=== PATIENT | female | born 1965 | race Caucasian/White ===

== ENCOUNTER → 2019-07-02 | Outpatient (CLI) | payer MEDICAID ==
--- NOTE | 2019-07-02 09:58 | CT ---
EXAMINATION TYPE: CT wrist RT wo con DATE OF EXAM: 07/02/2019 COMPARISON: None HISTORY: 53-year-old female Right sided wrist pain post trauma. TECHNIQUE: Contiguous axial scanning of the right wrist without IV contrast. Coronal and sagittal rec onstructions performed. 3-D reconstructions generated on a dedicated independent workstation. CT DLP: 632 mGycm Automated exposure control for dose reduction was used. FINDINGS: Overlying plaster cast. There is a comminuted fracture of the distal radial metaphysis extending into the epiphysis and the dorsal aspect of the radial articular surface. This is predominantly transvers e fracture at the level of the metaphysis but with comminution dorsally showing multiple fracture nery es extending into the dorsal aspect of the radiocarpal joint. Scattered articular surface gaps up to 2 mm. No significant articular surface incongruity. Comminution incorporates listers tubercle. There is 3 mm of dorsal displacement and minimal impaction demonstrated of the dominant transverse co mponent and intra-articular extension into the distal radial ulnar joint as well.. There are a couple tiny fracture fragments from the ulnar styloid process. IMPRESSION: 1. COMMINUTED, MINIMALLY IMPACTED FRACTURE OF THE DISTAL RADIAL METAPHYSIS AND EPIPHYSIS WITH 3 MM OF DORSAL DISPLACEMENT. INTRA-ARTICULAR FRACTURE LINES ALONG THE DORSAL ASPECT OF THE RADIOCARPAL JOINT WITH ARTICULAR SURFACE GAPS MEASURING UP TO 2 MM. ADDITIONAL INTRA-ARTICULAR EXTENSION INTO THE DIST AL RADIOULNAR JOINT. 2. A COUPLE TINY FRACTURED BONE FLECKS FROM THE ULNAR STYLOID PROCESS.
== END | disposition home or self-care (01) ==
LOC: RADCTMAIN 08:16
PROVIDERS: ATTEND Orthopaedic Surgery
DX: S52.571A Other intraarticular fracture of lower end of right radius, initial encounter for closed fracture (principal); S52.611A Displaced fracture of right ulna styloid process, initial encounter for closed fracture

== ENCOUNTER 2019-07-03 10:51 | Day surgery (SDC) | payer MEDICAID ==
[2019-07-01 14:14] VITALS: BMI 26.6
[~2019-07-03 10:51] MED LIST: DEXAMETHASONE SOD PHOSPHATE 10 MG/ML 1 ML VIAL IV ONE; HYDROmorphone 0.5 MG/0.5 ML SYRINGE IVP PRN; LACTATED RINGERS 1,000 ML IV SCH; MIDAZOLAM 2 MG/2 ML VIAL IV PRN; ONDANSETRON 4 MG/2 ML VIAL IVP ONE; fentaNYL (PF) 50 MCG/ML 2 ML AMP IVP PRN
[2019-07-03] MEDS ORDERED: SCOPOLAMINE 1.5MG/72HR PATCH TRANSDERM ONE (12:02)
[2019-07-03] MEDS ORDERED: MIDAZOLAM 2 MG/2 ML VIAL IV ONE (12:43)
[2019-07-03] MEDS ORDERED: fentaNYL (PF) 50 MCG/ML 2 ML AMP IV ONE (12:43)
[2019-07-03 13:02] VITALS: RESP 16
--- NOTE | 2019-07-03 13:13 | P.ANPRN ---
Procedure Note - Anesthesia - Nerve Block Performed Right Supraclavicular Single Time Out Performed: Yes Date of Procedure: 07/03/19 Procedure Start Time: 12:42 Procedure Stop Time: 12:52 Location of Patient: PreOp Indication: Acute Post-Operative Pain, Requested by Surgeon Sedation Type: Sedate with meaningful contact maintained Preparation: Sterile Prep Position: Sitting Catheter: None Needle Types: Facet Needle Gauge: 21 Ultrasound used to visualize needle placement: Yes Ultrasound used to observe medication spread: Yes Injectate: 0.5% Ropivacaine (see comment for volume) (ropivacaine 0.5% 30 cc + decadron 4mg) Blood Aspirated: No Pain Paresthesia on Injection Noted: No Resistance on Injection: Normal Image Stored and Saved: Yes Events: Uneventful and Well Tolerated
[2019-07-03] MEDS ORDERED: fentaNYL (PF) 50 MCG/ML 2 ML AMP ONE (14:06)
[2019-07-03] MEDS ORDERED: MIDAZOLAM 2 MG/2 ML VIAL ONE (14:06)
[2019-07-03] MEDS ORDERED: SUCCINYLCHOLINE CHLORIDE 100 MG/5 ML SYR IV ONE (14:06)
[2019-07-03] MEDS ORDERED: ROPIVACAINE 5 MG/ML 30 ML VIAL ONE (14:06)
[2019-07-03] MEDS ORDERED: PROPOFOL 10 MG/ML 20 ML VIAL IV ONE (14:06)
[2019-07-03] MEDS ORDERED: HYDROmorphone (PF) 1 MG/ML ONE (14:06)
[2019-07-03] MEDS ORDERED: LIDOCAINE 2%-EPI 1:100,000 20 ML VIAL ONE (14:06)
[2019-07-03] MEDS ORDERED: LIDOCAINE 1% INJ 10MG/ML (20 ML MDV) ONE (14:06)
[2019-07-03] MEDS ORDERED: DEXAMETHASONE SOD PHOSPHATE 4 MG/ML 1 ML VIAL ONE (14:06)
[2019-07-03] MEDS ORDERED: LIDOCAINE 1%-EPI 1:100,000 20 ML VIAL INTRAARTIC ONE ×3 (15:02→16:55)
[2019-07-03] MEDS ORDERED: LACTATED RINGERS 1,000 ML IV ONE (16:24)
[2019-07-03] MEDS ORDERED: LIDOCAINE 1%-EPI 1:100,000 20 ML VIAL SQ ONE (16:55)
[2019-07-03 17:20] VITALS: TEMP 97
--- NOTE | 2019-07-03 17:31 | P.OP ---
Date of Procedure: 07/03/19 Preoperative Diagnosis: Displaced, intra-articular right distal radius fracture Postoperative Diagnosis: Displaced, intra-articular right distal radius fracture Procedure(s) Performed: Open reduction and internal fixation of displaced intra-articular right distal radius fracture (greater than 3 parts) Implants: Acumed AcuLoc2 narrow right volar distal radius plate with locking and cortical screws Anesthesia: CHIQUI, eirberto Surgeon: Lucien Grimes Media Supervisor #1: Natasha Shepherd Estimated Blood Loss (ml): 10 Condition: stable Disposition: PACU Indications for Procedure: The patient is a pleasant 53-year-old female who sustained a right distal radius fracture after a slip and fall on the ice. Treatment options (and associated risks and benefits) were discussed in the office. Surgical treatment was recommended. In preop, the patient denied any additional questions or concerns and wished to proceed with surgery. Consent forms were signed. The operative site was confirmed and marked. Description of Procedure: The patient was administered a regional nerve block by the anesthesia team and was then brought to the operating suite. She was positioned supine with the operative limb on an arm board. All bony prominences were well-padded. Anesthesia was administered uneventfully. Prophylactic IV antibiotics were administered. A tourniquet was placed on the operative arm which was then prepped and draped in standard, sterile fashion. A timeout was performed, confirming patient identifiers, the operative side, the site and the procedure to be performed: all team members expressed agreement. The limb was ex sanguinated with an Esmarch and the tourniquet was inflated. A standard volar FCR approach was utilized. The skin was incised sharply and subcutaneous tissue were spread, coagulating superficial vessels as needed. The radial artery was identified and protected throughout the case. The FCR sheath was incised and the tendon was mobilized. The floor of the sheath was released and blunt dissection was used to exposed the pronator quadratus. There was a transverse rent in the muscle belly at the level of the fracture. This was extended along its radial border and & subperiosteally elevated ulnarly. The fracture site was identified. There was an oblique fracture across the metaphysis, extending just proximal to the sigmoid notch. Preoperative CT scan demonstrated intra-articular fracture l moises into both the DRUJ and radiocarpal joints, with a separate displaced fragment of the dorsal metaphysis of the intermediate column. Manual axial traction was applied. A Ryegate elevator was inserted into the fracture site to mobilize the fragments. A manual reduction maneuver was performed and satisfactory initial alignment was obtained & confirmed with fluoroscopy. The plate was selected, based on the patients anatomy and fracture pattern, and positioned on the volar radius. It was provisionally pinned in place with K- wires and its position was assessed on imaging. A cortical screw was drilled, measured and inserted into the oblong hole of the shaft. Residual shortening of the radial column was noted on imaging, as well as visible incongruity of the metaphysis ulnarly. The provisional K wires were removed. Using the plate as a reduction tool, the fracture was remanipulated using a combination of axial traction, ulnar deviation and palmar translation. Improved reduction was obtained and confirmed on imaging. A 0.062 K wire was inserted percutaneously into the radial styloid. With the fracture held reduced, this was advanced into the metaphysis for provisional stabilization. Locking screws were drilled, measured and inserted distally, confirming length and trajectory with fluoroscopy. The provisional K-wires were removed. An additional cortical screw was drilled and inserted to further secure the plate to the metaphysis. Final x-rays were obtained, which revealed satisfactory reduction of the fracture. A 20 inclined lateral view was obtained, confirming extra-articular screw placement. The wrist was then ranged under live fluoroscopy - no motion of the fracture fragments or fixation construct was appreciated. The wound was copiously irrigated with normal saline. The pronator was repaired over the plate with interrupted 2-0 Vicryl sutures. The tourniquet was released after 116 at 250 mm Hg. Excellent hemostasis was obtained with manual pressure and electrocautery. The subcutaneous tissues were reapproximated with interrupted 3-0 Vicryl sutures. The incision was closed with interrupted and running 4-0 nylon sutures. Lidocaine with epinephrine was injected into the perioperative subcutaneous tissues for adjunctive postoperative pain control and hemostasis. A sterile dressing was applied, followed by a volar short arm plaster splint. All sponge, needle and instrument counts were correct at the end of the case. The patient tolerated the procedure well and was taken to the recovery room in stable condition.
[2019-07-03 18:29] VITALS: BP 115/76; PULSE 114
--- NOTE | 2019-07-03 23:25 | FL ---
EXAMINATION TYPE: FL guidance operating room, XR wrist limited RT DATE OF EXAM: 07/03/2019 CLINICAL HISTORY: Right wrist fracture. TECHNIQUE: Fluoroscopy. Intraoperative limited views right wrist. COMPARISON: CT right wrist one day earlier.. FINDINGS: Fluoroscopic guidance was provided during open reduction internal fixation procedure perfo rmed by Dr. Grimes. A total of 2.55 minutes of fluoroscopic time was utilized during the procedu re and 5 spot images was acquired. Images acquired show placement of a dorsal fixating plate through comminuted intra-articular fractured distal radial meta-epiphysis. Satisfactory alignment is seen on intraoperative images obtained. IMPRESSION: As Above.
== END 2019-07-03 19:08 | disposition home or self-care (01) ==
LOC: OR 10:51
PROVIDERS: ATTEND Orthopaedic Surgery
DX: S52.571A Other intraarticular fracture of lower end of right radius, initial encounter for closed fracture (principal); Z88.4 Allergy status to anesthetic agent; Z98.890 Other specified postprocedural states; Z91.040 Latex allergy status; R00.0 Tachycardia, unspecified; G61.0 Guillain-Barre syndrome; Z91.89 Other specified personal risk factors, not elsewhere classified; Z87.898 Personal history of other specified conditions; E66.9 Obesity, unspecified; Z68.31 Body mass index [BMI] 31.0-31.9, adult; Z85.828 Personal history of other malignant neoplasm of skin; W00.0XXA Fall on same level due to ice and snow, initial encounter
CPT/HCPCS: 64415; 81025; 76942; 73100; 25609; C1713; J2250; J1100 ×2; J0690; J2405; J2001; J3010; J1170; J2795; J0330; J2704

== ENCOUNTER → 2020-05-27 | Outpatient (CLI) | payer MEDICAID ==
[2020-05-27 15:13] LABS: HCT 41.9 % (34.0-46.0); MCH 32.7 pg (25.0-35.0); MCHC 33.5 g/dL (31.0-37.0); MCV 97.7 fL (80.0-100.0); Mean Platelet Volume 7.3; Platelet Count 290 k/uL (150-450); RBC 4.29 m/uL (3.80-5.40); RDW 13.4 % (11.5-15.5); WBC 10.1 k/uL (3.8-10.6)
[2020-05-27 21:19] LABS: % Iron Saturation 44.93 (12.00-45.00); C Reactive Protein, High Sens 4.19 mg/L (0.000-3.000)
[2020-05-27 21:37] LABS: Ferritin 307.7 ng/mL (10.0-291.0)
[2020-05-27 21:39] LABS: Beta 2 Microglobulin 1.27 mg/L (0.61-2.37)
== END | disposition home or self-care (01) ==
LOC: LABWHC1 14:23
PROVIDERS: ATTEND Family Medicine
DX: Z00.00 Encounter for general adult medical examination without abnormal findings (principal); E55.9 Vitamin D deficiency, unspecified; D50.9 Iron deficiency anemia, unspecified; I25.10 Atherosclerotic heart disease of native coronary artery without angina pectoris; N28.9 Disorder of kidney and ureter, unspecified
CPT/HCPCS: 36415; 82232; 82306; 82728; 83090; 83540; 83550; 85027; 86141

== ENCOUNTER → 2020-09-12 | Outpatient (CLI) | payer MEDICAID ==
[2020-09-13 02:49] LABS: Ferritin 209.1 ng/mL (10.0-291.0); T4, Free (Free Thyroxine) 0.9 ng/dL (0.80-1.80)
== END | disposition home or self-care (01) ==
LOC: LABWHC1 16:12
PROVIDERS: ATTEND Family Medicine
DX: E03.9 Hypothyroidism, unspecified (principal)
CPT/HCPCS: 36415; 82728; 84439; 84443; 84481; 86376

== ENCOUNTER → 2020-11-30 | Outpatient (CLI) | payer MEDICAID ==
[2020-11-30 23:13] LABS: HCT 41.9 % (37.2-46.3); HGB 14.5 g/dL (12.0-15.0); MCH 33.8 pg (27.0-32.0); MCHC 34.6 g/dL (32.0-37.0); MCV 97.7 fL (80.0-97.0); Mean Platelet Volume 10.2 fL (9.5-12.2); Platelet Count 246 X 10*3/uL (140-440); RBC 4.29 X 10*6/uL (4.10-5.20); RDW 11.8 % (11.5-14.5); WBC 9.54 X 10*3/uL (4.50-10.00)
[2020-12-01 06:40] LABS: C Reactive Protein, High Sens 7.16 mg/L (0.000-3.000)
== END | disposition home or self-care (01) ==
LOC: LABWHC1 15:55
PROVIDERS: ATTEND Family Medicine
DX: E03.9 Hypothyroidism, unspecified (principal); D50.9 Iron deficiency anemia, unspecified; E55.9 Vitamin D deficiency, unspecified; K90.9 Intestinal malabsorption, unspecified; I25.10 Atherosclerotic heart disease of native coronary artery without angina pectoris
CPT/HCPCS: 36415; 82306; 84443; 84481; 84630; 85027; 86141

== ENCOUNTER → 2021-02-09 | Outpatient (CLI) | payer MEDICAID ==
[2021-02-09 23:52] LABS: Basophils # (A) 0.04 X 10*3/uL (0.00-0.10); Basophils % (A) 0.5 %; Eosinophils % (A) 1.2 %; HCT 42.5 % (37.2-46.3); HGB 14.7 g/dL (12.0-15.0); Lymphocytes # (A) 2.03 X 10*3/uL (0.90-5.00); Lymphocytes % (A) 23.6 %; MCH 33.2 pg (27.0-32.0); MCHC 34.6 g/dL (32.0-37.0); MCV 95.9 fL (80.0-97.0); Mean Platelet Volume 10.3 fL (9.5-12.2); Monocytes # (A) 0.68 X 10*3/uL (0.20-1.00); Monocytes % (A) 7.9 %; Neutrophils # (A) 5.72 X 10*3/uL (1.80-7.70); Neutrophils % (A) 66.5 %; Platelet Count 300 X 10*3/uL (140-440); RBC 4.43 X 10*6/uL (4.10-5.20); RDW 11.9 % (11.5-14.5)
[2021-02-10 04:06] LABS: Insulin Level 13.8 mIU/mL (3.0-25.0); Progesterone 0.2 ng/mL
[2021-02-10 05:44] LABS: % Iron Saturation 49.32 (12.00-45.00); Glucose 83 mg/dL (70-110); Iron 116 ug/dL (50-170); Luteinizing Hormone 6.8 mIU/mL; Total Iron Binding Capacity 235 ug/dL (228-460)
[2021-02-10 05:52] LABS: Estradiol 54.4 pg/mL
[2021-02-10 06:32] LABS: HCG,Quantitative Serum <0.1 (0.0-6.0); Testosterone <2.50 ng/mL (7.00-45.62)
== END | disposition home or self-care (01) ==
LOC: LABWHC1 16:33
PROVIDERS: ATTEND Obstetrics & Gynecology
DX: N93.9 Abnormal uterine and vaginal bleeding, unspecified (principal); R53.83 Other fatigue
CPT/HCPCS: 36415; 82306; 82627; 82670; 82947; 83001; 83002; 83090; 83498; 83525; 83540; 83550; 84144; 84146; 84402; 84403; 84439; 84443; 84481; 84702; 85025

== ENCOUNTER → 2021-03-29 | Outpatient (CLI) | payer MEDICAID ==
[2021-03-29 17:12] LABS: Appearance,Urine Clear (Clear); Bacteria,Urine Rare /hpf; Bilirubin,Urine Negative (Negative); Blood,Urine Moderate (Negative); Color,Urine Yellow; Glucose,Urine (UA) Negative (Negative); Ketones,Urine 2+ (Negative); Leukocyte Esterase,Urine Negative (Negative); Mucus,Urine Rare /hpf; Nitrite,Urine Negative (Negative); Protein,Urine Negative (Negative); RBC,Urine 5 /hpf (0-5); Specific Gravity,Urine 1.034 (1.001-1.035); Squamous Epithelial Cell,Urine <1 /hpf (0-4); Urobilinogen,Urine <2.0 mg/dL (<2.0); WBC,Urine 2 /hpf (0-5)
[2021-03-30 00:08] LABS: Basophils # (A) 0.04 X 10*3/uL (0.00-0.10); Basophils % (A) 0.4 %; Eosinophils # (A) 0.14 X 10*3/uL (0.04-0.35); Eosinophils % (A) 1.4 %; HCT 44.6 % (37.2-46.3); Lymphocytes # (A) 2.11 X 10*3/uL (0.90-5.00); Lymphocytes % (A) 20.7 %; MCH 33.2 pg (27.0-32.0); MCHC 33.6 g/dL (32.0-37.0); MCV 98.7 fL (80.0-97.0); Mean Platelet Volume 10.1 fL (9.5-12.2); Monocytes # (A) 0.66 X 10*3/uL (0.20-1.00); Monocytes % (A) 6.5 %; Neutrophils # (A) 7.16 X 10*3/uL (1.80-7.70); Neutrophils % (A) 70.2 %; Platelet Count 344 X 10*3/uL (140-440); RBC 4.52 X 10*6/uL (4.10-5.20); RDW 11.9 % (11.5-14.5); WBC 10.19 X 10*3/uL (4.50-10.00)
== END | disposition home or self-care (01) ==
LOC: LABWHC1 15:15
PROVIDERS: ATTEND Obstetrics & Gynecology
DX: Z01.812 Encounter for preprocedural laboratory examination (principal)
CPT/HCPCS: 36415; 81001; 85025; 87086

== ENCOUNTER → 2021-07-18 | Outpatient (CLI) | payer MEDICAID ==
[2021-07-18 22:32] LABS: Basophils # (A) 0.04 X 10*3/uL (0.00-0.10); Basophils % (A) 0.4 %; HCT 43.1 % (37.2-46.3); HGB 14.8 g/dL (12.0-15.0); Immature Grans, Automated 0.3 %; Lymphocytes # (A) 1.91 X 10*3/uL (0.90-5.00); Lymphocytes % (A) 19.4 %; MCH 33.1 pg (27.0-32.0); MCHC 34.3 g/dL (32.0-37.0); MCV 96.4 fL (80.0-97.0); Mean Platelet Volume 10.4 fL (9.5-12.2); Monocytes # (A) 0.68 X 10*3/uL (0.20-1.00); Monocytes % (A) 6.9 %; NRBC Per 100 WBC 0 /100 WBCS (0.0-0.0); Neutrophils # (A) 6.89 X 10*3/uL (1.80-7.70); Platelet Count 287 X 10*3/uL (140-440); RBC 4.47 X 10*6/uL (4.10-5.20); RDW 12.2 % (11.5-14.5); WBC 9.85 X 10*3/uL (4.50-10.00)
[2021-07-19 00:08] LABS: Calcium 9.3 mg/dL (8.7-10.3); Carbon Dioxide 24.7 mmol/L (20.0-27.5); Chloride 100 mmol/L (96-109); Glucose 93 mg/dL (70-110); Magnesium 2.1 mg/dL (1.5-2.4); Phosphorus 2.7 mg/dL (2.4-5.1); Potassium 4.2 mmol/L (3.5-5.5); Sodium 138 mmol/L (135-145)
[2021-07-19 04:16] LABS: Insulin Level 13.5 mIU/mL (3.0-25.0); Progesterone 0.3 ng/mL
[2021-07-19 04:19] LABS: Follicle Stimulating Hormone 13.1 mIU/mL; HCG,Quantitative Serum <3.0 (0.0-6.0); Luteinizing Hormone 31.4 mIU/mL
[2021-07-19 04:23] LABS: % Iron Saturation 34.36 (12.00-45.00); ALT 33 U/L (8-44); AST 26 U/L (13-35); Iron 99 ug/dL (50-170); Total Iron Binding Capacity 288 ug/dL (228-460)
== END | disposition home or self-care (01) ==
LOC: LABWHC1 15:56
PROVIDERS: ATTEND Obstetrics & Gynecology
DX: N95.1 Menopausal and female climacteric states (principal); E83.119 Hemochromatosis, unspecified
CPT/HCPCS: 36415; 80051; 82306; 82310; 82626; 82670; 82728; 82947; 83001; 83002; 83498; 83525; 83540; 83550; 83735; 84100; 84144; 84146; 84402; 84403; 84432; 84439; 84450; 84460; 84481; 84702; 85025; 86376; 86800

== ENCOUNTER 2021-10-08 18:53 | Emergency (ER) | payer MEDICAID ==
[2021-10-08 18:59] VITALS: BP 123/69; PULSE 108; RESP 20; TEMP 98
--- NOTE | 2021-10-08 19:32 | XR ---
EXAMINATION TYPE: XR ankle complete RT DATE OF EXAM: 10/08/2021 COMPARISON: NONE HISTORY: Ankle pain TECHNIQUE: 3 views FINDINGS: There is some soft tissue swelling over the lateral malleolus. Ankle mortise is anatomic. T here is oblique fracture distal fibula. No dislocation. Talus is intact. IMPRESSION: Acute nondisplaced fracture of the distal fibula.
--- NOTE | 2021-10-08 19:34 | ED ---
General Adult HPI - General Chief complaint: Extremity Injury, Lower Stated complaint: Fall-R foot injury Time Seen by Provider: 10/08/21 19:02 Source: patient, RN notes reviewed, old records reviewed Mode of arrival: wheelchair Limitations: no limitations - History of Present Illness Initial comments: 56-year-old female presenting with right ankle pain, patient tripped and fell while walking her dog injured her right ankle. She had a minor injury to the right knee with no head or neck trauma. No anticoagulation. - Related Data Home Medications Medication Instructions Recorded Confirmed Cannabidiol (Cbd) [Epidiolex] 1 dose PO DIRECTED PRN 07/01/19 07/01/19 HYDROcodone/APAP 7.5-325MG [Jackson 1 tab PO DIRECTED PRN 07/01/19 07/01/19 7.5-325] Allergies Allergy/AdvReac Type Severity Reaction Status Date / Time latex Allergy Unknown Swelling, Verified 10/08/21 18:59 Rash Review of Systems ROS Statement: Those systems with pertinent positive or pertinent negative responses have been documented in the HPI. ROS Other: All systems not noted in ROS Statement are negative. Past Medical History Past Medical History: Cancer Additional Past Medical History / Comment(s): HX OF GUILLIAN-BARRE (2012), TACHYCARDIA, BASAL CELL SKIN CANCER, FELL AND FX RIGHT WRIST- HAS SPLINT ON AND SLING. History of Any Multi-Drug Resistant Organisms: None Reported Past Surgical History: Section Additional Past Surgical History / Comment(s): X2, BREAST BX, LAPAROSCOPY Past Anesthesia/Blood Transfusion Reactions: Previous Problems w/ Anesthesia, Family History of Problems w/ Anesthesia, Motion Sickness, Postoperative Nausea & Vomiting (PONV) Additional Past Anesthesia/Blood Transfusion Reaction / Comment(s): COMBATIVE OR CRYING POST-OP. BROTHER IS ALSO COMBATIVE POST-OP Past Psychological History: No Psychological Hx Reported Smoking Status: Never smoker Past Alcohol Use History: Occasional Past Drug Use History: None Reported - Past Family History Mother Family Medical History: Cancer Additional Family Medical History / Comment(s): THYROID CANCER Brother(s) Family Medical History: Cancer Additional Family Medical History / Comment(s): SKIN CANCER General Exam Limitations: no limitations General appearance: alert, in no apparent distress Head exam: Present: atraumatic, normocephalic Eye exam: Present: normal appearance, PERRL ENT exam: Present: normal exam Neck exam: Present: normal inspection Respiratory exam: Absent: respiratory distress Cardiovascular Exam: Present: regular rate, normal rhythm GI/Abdominal exam: Absent: distended Extremities exam: Present: tenderness, joint swelling, other (Right lower extremity, distal pulses are intact, DP and PT she has pain over the lateral malleolus with soft tissue swelling. No gross deformity.). Absent: full ROM Neurological exam: Present: alert, oriented X3, CN II-XII intact. Absent: motor sensory deficit Skin exam: Present: warm, dry, intact Course Vital Signs 10/08/21 18:56 Temperature 98 F Pulse Rate 108 H Respiratory 20 Rate Blood Pressure 123/69 O2 Sat by Pulse 100 Oximetry Procedures - Orthopedic Splinting/Casting Injury #1 Side: right Lower Extremity Injury Location: ankle Lower Extremity Immobilizer: stirrup splint Other Orthopedic Equipment: crutches Medical Decision Making - Medical Decision Making 56-year-old female with right ankle pain status post fall. Patient has x-ray showing fracture of the lateral malleolus with minimal displacement. She is neurovascularly intact. Splint is applied in the emergency department. She's given orthopedic follow-up. She is also given a prescription for crutches. Disposition Clinical Impression: Fracture of ankle Disposition: HOME SELF-CARE Condition: Good Instructions (If sedation given, give patient instructions): Ankle Fracture (ED) Is patient prescribed a controlled substance at d/c from ED?: No Referrals: Guy Hartmann DO [Primary Care Provider] - 1-2 days Celio Gastelum DO [REFERRING] - 1-2 days Time of Disposition: 19:27
== END 2021-10-08 20:12 | disposition home or self-care (01) ==
LOC: EC 18:53
DX: S82.91XA Unspecified fracture of right lower leg, initial encounter for closed fracture (principal); Z91.040 Latex allergy status; W01.0XXA Fall on same level from slipping, tripping and stumbling without subsequent striking against object, initial encounter; Y93.K1 Activity, walking an animal
CPT/HCPCS: 29515; 99283

== ENCOUNTER → 2021-10-12 | Outpatient (CLI) | payer MEDICAID ==
--- NOTE | 2021-10-12 08:49 | CT ---
EXAMINATION TYPE: CT ankle RT wo con DATE OF EXAM: 10/12/2021 INDICATION: Rt ankle fracture CT DLP: 183.5 mGy.cm Automated Exposure Control for Dose Reduction was Utilized. TECHNIQUE AND CONTRAST: CT scan of the right ankle without IV contrast administration. 3-D reconstruction images were generat ed on an independent workstation and reviewed. COMPARISON: X-ray dated 10/09/2019 FINDINGS: Spiral comminuted fracture of the distal fibula extending from the distal diaphysis to the distal met aphysis and the anterior aspect of the lateral malleolus with bone fragments measuring up t o 19 mm. The fracture line seen extending to the ankle joint. Nondisplaced fracture of the posterior malleolus. Slight narrowing of the medial aspect of the ankle mortise. No other definite acute fracture line identified. Smooth talar dome. Accessory ossicle is seen at the medial aspect of the navicular bone measuring 15 x 19 mm with suspec evelyne pseudoarticulation with the navicular bone. No sizable ankle joint effusion. IMPRESSION: Right ankle fracture as detailed above.
== END | disposition home or self-care (01) ==
LOC: RADCTMAIN 06:48
PROVIDERS: ATTEND Orthopaedic Surgery Orthopaedic Trauma
DX: S82.55XA Nondisplaced fracture of medial malleolus of left tibia, initial encounter for closed fracture (principal); S82.442A Displaced spiral fracture of shaft of left fibula, initial encounter for closed fracture

== ENCOUNTER → 2021-12-09 | Outpatient (CLI) | payer MEDICAID ==
[2021-12-09 17:19] LABS: MCH 32.6 pg (27.0-32.0); MCHC 34.1 g/dL (32.0-37.0); MCV 95.3 fL (80.0-97.0); NRBC Per 100 WBC 0 /100 WBCS (0.0-0.0); Platelet Count 299 X 10*3/uL (140-440); RDW 12.3 % (11.5-14.5); WBC 9.34 X 10*3/uL (4.50-10.00)
[2021-12-09 18:48] LABS: Thyroid Peroxidase Antibodies 9.9 U/mL (0.0-33.0)
[2021-12-09 19:10] LABS: ALT 18 U/L (8-44); AST 18 U/L (13-35); African American GFR (CKD) 113.8 (60.0-200.0); Albumin 4.6 g/dL (3.8-4.9); Alkaline Phosphatase 74 U/L (41-126); BUN/Creat Ratio 23.57 Ratio (12.00-20.00); Blood Urea Nitrogen 16.5 mg/dL (9.0-27.0); Calcium 9.2 mg/dL (8.7-10.3); Carbon Dioxide 23.7 mmol/L (20.0-27.5); Chloride 104 mmol/L (96-109); Chol/HDL Ratio 3.67 Ratio; Globulin 2.3 g/dL (1.6-3.3); Glucose 96 mg/dL (70-110); Iron 82 ug/dL (50-170); LDL Cholesterol,Calculated 125.9 mg/dL (0.0-131.0); Non-African American GFR(CKD) 98.2 (60.0-200.0); Potassium 4.7 mmol/L (3.5-5.5); Sodium 139 mmol/L (135-145); Total Protein 6.9 g/dL (6.2-8.2); VLDL Calculation 11.58 mg/dL (5.00-40.00)
== END | disposition home or self-care (01) ==
LOC: LABWHC1 10:03
PROVIDERS: ATTEND Family Medicine
DX: E03.9 Hypothyroidism, unspecified (principal); E83.110 Hereditary hemochromatosis
CPT/HCPCS: 36415; 80053; 80061; 82728; 83540; 84439; 84443; 84466; 84481; 85027; 86376

== ENCOUNTER → 2022-07-17 | Outpatient (CLI) | payer MEDICAID ==
[2022-07-17 14:22] LABS: Basophils # (A) 0.03 X 10*3/uL (0.00-0.10); Basophils % (A) 0.4 %; Eosinophils # (A) 0.11 X 10*3/uL (0.04-0.35); Eosinophils % (A) 1.4 %; HCT 43.5 % (37.2-46.3); HGB 14.7 g/dL (12.0-15.0); Immature Grans, Automated 0.3 %; Lymphocytes # (A) 1.49 X 10*3/uL (0.90-5.00); Lymphocytes % (A) 18.8 %; MCH 32.7 pg (27.0-32.0); MCHC 33.8 g/dL (32.0-37.0); MCV 96.9 fL (80.0-97.0); Mean Platelet Volume 9.8 fL (9.5-12.2); Monocytes # (A) 0.57 X 10*3/uL (0.20-1.00); Monocytes % (A) 7.2 %; NRBC Per 100 WBC 0 /100 WBCS (0.0-0.0); Neutrophils # (A) 5.69 X 10*3/uL (1.80-7.70); Neutrophils % (A) 71.9 %; Platelet Count 261 X 10*3/uL (140-440); RBC 4.49 X 10*6/uL (4.10-5.20); RDW 12.2 % (11.5-14.5); WBC 7.91 X 10*3/uL (4.50-10.00)
[2022-07-17 15:38] LABS: % Iron Saturation 42.55 (12.00-45.00); ALT 24 U/L (8-44); AST 22 U/L (13-35); African American GFR (CKD) 112.3 (60.0-200.0); Albumin 4.3 g/dL (3.8-4.9); Albumin/Globulin Ratio 1.97 (1.60-3.17); Alkaline Phosphatase 75 U/L (41-126); BUN/Creat Ratio 18.93 Ratio (12.00-20.00); Blood Urea Nitrogen 13.4 mg/dL (9.0-27.0); Calcium 9.4 mg/dL (8.7-10.3); Carbon Dioxide 25.6 mmol/L (20.0-27.5); Chloride 105 mmol/L (96-109); Chol/HDL Ratio 2.82 Ratio; Ferritin 55.7 ng/mL (10.0-291.0); Globulin 2.2 g/dL (1.6-3.3); Glucose 92 mg/dL (70-110); Iron 112 ug/dL (50-170); Non-African American GFR(CKD) 96.9 (60.0-200.0); Potassium 4.5 mmol/L (3.5-5.5); Sodium 141 mmol/L (135-145); Total Iron Binding Capacity 263 ug/dL (228-460); Total Protein 6.5 g/dL (6.2-8.2)
[2022-07-17 16:15] LABS: Homocysteine 8.87 umol/L (4.00-14.00); Thyroid Peroxidase Antibodies 11.8 U/mL (0.0-33.0)
== END | disposition home or self-care (01) ==
LOC: LABWHC1 08:49
PROVIDERS: ATTEND Family Medicine
DX: Z00.00 Encounter for general adult medical examination without abnormal findings (principal); E03.9 Hypothyroidism, unspecified; E06.3 Autoimmune thyroiditis
CPT/HCPCS: 36415; 80053; 80061; 82533; 82626; 82728; 83090; 83540; 83550; 84432; 84439; 84443; 84481; 84482; 85025; 86140; 86376

== ENCOUNTER → 2023-02-20 | Outpatient (CLI) | payer MEDICAID ==
--- NOTE | 2023-02-20 10:37 | CA ---
Exercise Stress Test Report Name: Sri Bhakta Exam Date: 02/20/2023 09:01 Exam Location: [facility] Stress Ht (in): 64 Wt (lb): 155 BSA: 1.76 Ordering Phys: Guy Hartmann DO Referring Phys: Guy Hartmann DO Technologist: Lino Man Age: 57 Gender: F : 1965 Procedure CPT: Indications: I49.9 CARDIAC ARRHYTHMIA R07.9 CHEST PAIN ICD-10 Codes: Patient History: Medications: NONE Meds past 24 hrs: Pretest Chest Pain: STRESS TEST Sam Protocol Exercise Duration (min:sec): 07:[address] Depressions (mm): Angina Score: Acosta Score: Resting HR (bpm): 109 Peak HR (bpm): 153 Resting BP (mmHg): 132 / 79 Peak BP (mmHg): 166 / 68 MPHR: 165 Target HR: 140 % MPHR: 93 METS: 9.2 Total Dose: Peak Dose: Atropine: Double Product: 38544 BP Response: Stress Termination: Reached target heart rate Stress Symptoms: No chest pain or symptoms Stress Summary: ECG ANALYSIS Resting ECG: Sinus rhythm, normal axis, no blocks, heart rate 10 4 bpm Stress ECG: No significant ST-T wave changes diagnostic for ischemia by ST segment analysis. There are no arrhythmias or ectopic beats CONCLUSIONS Fair exercise tolerance for patient's age achieving 9.2 METs Normal hemodynamic and clinical response to exercise Nonischemic ECG response to treadmill exercise Overall normal treadmill stress test Dr David Vasquez (Electronically Signed) Final Date: 20 February 2023 10:36
== END | disposition home or self-care (01) ==
LOC: RADNMMAIN 08:25
PROVIDERS: ATTEND Family Medicine
DX: I49.9 Cardiac arrhythmia, unspecified (principal); R07.9 Chest pain, unspecified; R00.2 Palpitations
CPT/HCPCS: 93017

== ENCOUNTER → 2023-08-03 | Outpatient (CLI) | payer MEDICAID ==
[2023-08-03 10:07] LABS: Appearance,Urine Clear (Clear); Bacteria,Urine Rare /hpf; Bilirubin,Urine Negative (Negative); Blood,Urine Small (Negative); Color,Urine Light Yellow; Glucose,Urine (UA) Negative (Negative); Ketones,Urine Negative (Negative); Leukocyte Esterase,Urine Negative (Negative); Mucus,Urine Occasional /hpf; Nitrite,Urine Negative (Negative); Protein,Urine Negative (Negative); RBC,Urine 3 /hpf (0-5); Specific Gravity,Urine 1.021 (1.001-1.035); Squamous Epithelial Cell,Urine 10 /hpf (0-4); Urobilinogen,Urine <2.0 mg/dL (<2.0); WBC,Urine 1 /hpf (0-5)
[2023-08-03 13:28] LABS: ALT 24 U/L (8-44); AST 19 U/L (13-35); Chol/HDL Ratio 3.91 Ratio; Glucose 91 mg/dL (70-110); Iron 33 UG/DL (50-170); LDL Cholesterol,Calculated 114.9 mg/dL (0.0-131.0); T4, Free (Free Thyroxine) 1.18 ng/dL (0.80-1.80)
== END | disposition home or self-care (01) ==
LOC: LABWHC1 08:36
PROVIDERS: ATTEND Family Medicine
DX: E83.110 Hereditary hemochromatosis (principal); R30.0 Dysuria
CPT/HCPCS: 36415; 80061; 81001; 82728; 82947; 83540; 84439; 84443; 84450; 84460; 84481

== ENCOUNTER → 2023-11-04 | Outpatient (CLI) | payer MEDICAID ==
[2023-11-04 21:02] LABS: Basophils # (A) 0.04 X 10*3/uL (0.00-0.10); Basophils % (A) 0.5 %; Eosinophils # (A) 0.19 X 10*3/uL (0.04-0.35); Eosinophils % (A) 2.3 %; HCT 38.8 % (37.2-46.3); HGB 12.5 g/dL (12.0-15.0); Lymphocytes # (A) 2.15 X 10*3/uL (0.90-5.00); Lymphocytes % (A) 26.3 %; MCH 28.7 pg (27.0-32.0); MCHC 32.2 g/dL (32.0-37.0); Monocytes # (A) 0.69 X 10*3/uL (0.20-1.00); Monocytes % (A) 8.4 %; NRBC Per 100 WBC 0 X 10*3/uL (0.00-0.01); Neutrophils # (A) 5.09 X 10*3/uL (1.80-7.70); Neutrophils % (A) 62.3 %; Platelet Count 313 X 10*3/uL (140-440); RBC 4.36 X 10*6/uL (4.10-5.20); RDW 12.7 % (11.5-14.5); WBC 8.18 X 10*3/uL (4.50-10.00)
[2023-11-04 21:11] LABS: Ferritin 13.3 ng/mL (10.0-291.0); T4, Free (Free Thyroxine) 1.22 ng/dL (0.80-1.80)
[2023-11-04 22:18] LABS: % Iron Saturation 9.12 (12.00-45.00)
== END | disposition home or self-care (01) ==
LOC: LABWHC1 15:43
PROVIDERS: ATTEND Family Medicine
DX: E83.110 Hereditary hemochromatosis (principal); E06.3 Autoimmune thyroiditis
CPT/HCPCS: 36415; 82728; 82746; 83540; 83550; 84439; 84443; 84481; 85025

== ENCOUNTER → 2024-08-13 | Outpatient (CLI) | payer MEDICAID ==
[2024-08-13 20:43] LABS: HSV I IgG Interp Positive (Negative); HSV II IgG Interp Negative (Negative)
[2024-08-13 20:44] LABS: HIV 2 AB Non-Reactive (Non-Reactive); HIV AB P24 Non-Reactive (Non-Reactive); HIV P24 AG Non-Reactive (Non-Reactive)
== END | disposition home or self-care (01) ==
LOC: LABWHC1 15:26
PROVIDERS: ATTEND Obstetrics & Gynecology
DX: Z11.3 Encounter for screening for infections with a predominantly sexual mode of transmission (principal)
CPT/HCPCS: 36415; 86695; 86696; 86780; 87390

== ENCOUNTER → 2024-08-29 | Outpatient (CLI) | payer MEDICAID ==
[2024-08-29 12:33] LABS: Appearance,Urine Clear (Clear); Bilirubin,Urine Negative (Negative); Blood,Urine Trace (Negative); Color,Urine Yellow; Glucose,Urine (UA) Negative (Negative); Hyaline Casts,Urine 1 /lpf (0-2); Ketones,Urine Negative (Negative); Leukocyte Esterase,Urine Small (Negative); Mucus,Urine Few /hpf; Nitrite,Urine Negative (Negative); PH, Urine 6.5 (5.0-8.0); Protein,Urine Negative (Negative); RBC,Urine 10 /hpf (0-5); Specific Gravity,Urine 1.022 (1.001-1.035); Squamous Epithelial Cell,Urine 2 /hpf (0-4); Urobilinogen,Urine <2.0 mg/dL (<2.0); WBC,Urine 4 /hpf (0-5)
[2024-08-30 06:33] LABS: Basophils # (A) 0.03 X 10*3/uL (0.00-0.10); Basophils % (A) 0.5 %; Eosinophils # (A) 0.08 X 10*3/uL (0.04-0.35); Eosinophils % (A) 1.3 %; HCT 41.4 % (37.2-46.3); HGB 13.6 g/dL (12.0-15.0); Lymphocytes # (A) 1.53 X 10*3/uL (0.90-5.00); MCH 29.2 pg (27.0-32.0); MCHC 32.9 g/dL (32.0-37.0); MCV 88.8 FL (80.0-97.0); Mean Platelet Volume 10.5 FL (9.5-12.2); Monocytes # (A) 0.48 X 10*3/uL (0.20-1.00); Monocytes % (A) 7.9 %; NRBC Per 100 WBC 0 X 10*3/uL (0.00-0.01); Neutrophils # (A) 3.97 X 10*3/uL (1.80-7.70); Platelet Count 310 X 10*3/uL (140-440); RBC 4.66 X 10*6/uL (4.10-5.20); RDW 12.3 % (11.5-14.5); WBC 6.11 X 10*3/uL (4.50-10.00)
[2024-08-30 09:35] LABS: Insulin Level 8.5 mIU/mL (3.0-25.0)
[2024-08-30 10:04] LABS: Progesterone 0.1 ng/mL
[2024-08-30 10:27] LABS: Chol/HDL Ratio 3.99 Ratio; Estradiol <20.0 pg/mL; LDL Cholesterol,Calculated 107.1 mg/dL (0.0-131.0)
[2024-08-30 10:28] LABS: % Iron Saturation 22.12 (12.00-45.00); ALT 18 U/L (8-44); AST 20 U/L (13-35); Albumin 4.4 g/dL (3.8-4.9); Albumin/Globulin Ratio 1.91 Ratio (1.60-3.17); Alkaline Phosphatase 113 U/L (41-126); BUN/Creat Ratio 21.43 Ratio (12.00-20.00); Calcium 9.4 mg/dL (8.7-10.3); Carbon Dioxide 19.7 mmol/L (21.6-31.8); Chloride 102 mmol/L (96-109); Ferritin 20.9 ng/mL (10.0-291.0); Globulin 2.3 g/dL (1.6-3.3); Glucose 95 mg/dL (70-110); Homocysteine 12.7 UMOL/L (4.00-14.00); Iron 73 UG/DL (50-170); Potassium 4.3 mmol/L (3.5-5.5); Sodium 140 mmol/L (135-145); T4, Free (Free Thyroxine) 1.11 ng/dL (0.80-1.80); Thyroid Peroxidase Antibodies 14.5 U/mL (0.0-33.0); Total Bilirubin 0.2 mg/dL (0.3-1.2); Total Iron Binding Capacity 330 UG/DL (228-460); Total Protein 6.7 g/dL (6.2-8.2)
== END | disposition home or self-care (01) ==
LOC: LABWHC1 11:23
PROVIDERS: ATTEND Physician Assistant
DX: Z00.00 Encounter for general adult medical examination without abnormal findings (principal); E78.2 Mixed hyperlipidemia; R53.83 Other fatigue; E55.9 Vitamin D deficiency, unspecified; E06.3 Autoimmune thyroiditis; N95.8 Other specified menopausal and perimenopausal disorders
CPT/HCPCS: 36415; 80053; 80061; 81001; 82306; 82533; 82607; 82626; 82670; 82728; 82746; 83036; 83090; 83516; 83525; 83540; 83550; 83721; 84144; 84270; 84403; 84432; 84439; 84443; 84466; 84481; 84482; 84681; 85025; 86141; 86376

== ENCOUNTER 2024-11-04 13:04 | Emergency (ER) | payer MEDICAID ==
--- NOTE | 2024-11-04 13:31 | ED ---
Arrhythmia/Palpitations HPI - General Source: patient, RN notes reviewed Mode of arrival: ambulatory Limitations: no limitations <Gracie Miner - Last Filed: 11/04/24 16:04> <Sangeetha Mckeon - Last Filed: 11/04/24 22:05> - General Stated Complaint: shoulder pain, watch stated AFIB Time Seen by Provider: 11/04/24 13:30 - History of Present Illness Initial Comments: 59-year-old female presented to the ER for evaluation of palpitations. Patient reports over the past 3 days she has been having intermittent "waves of palpitations. She states these "waves" will last approximately 10 minutes. She states during these episodes she endorses associated shortness of breath and dizziness. She denies any chest pain but states it feels like she needs to "stretch her chest". Patient does admit a couple of days ago she was experie ncing a hot burning pain to left shoulder. This has since subsided. Patient reports today her smart watch indicated she was in atrial fibrillation which prompted emergency department visit. She denies a history of this. No blood thinner use. Patient denies known cardiac history, history of DVT/PEs. She does admit to a recent 4-hour car ride [place]. Patient is a non-smoker. Patient denies any fevers, chills, cough, congestion, nausea, vomiting, abdominal pain, constipation/diarrhea, urinary complaints or peripheral edema. 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 (Gracie Miner) - Related Data Home Medications Medication Instructions Recorded Confirmed No Known Home Medications 11/04/24 11/04/24 Allergies Allergy/AdvReac Type Severity Reaction Status Date / Time latex Allergy Unknown Swelling, Verified 11/04/24 15:46 Rash Review of Systems ROS Other: All systems not noted in ROS Statement are negative. <Gracie Miner - Last Filed: 11/04/24 16:04> ROS Other: All systems not noted in ROS Statement are negative. <Sangeetha Mckeon - Last Filed: 11/04/24 22:05> ROS Statement: Those systems with pertinent positive or pertinent negative responses have been documented in the HPI. Past Medical History Past Medical History: Cancer Additional Past Medical History / Comment(s): HX OF GUILLIAN-BARRE (2012), TACHYCARDIA, BASAL CELL SKIN CANCER, FELL AND FX RIGHT WRIST- HAS SPLINT ON AND SLING. History of Any Multi-Drug Resistant Organisms: None Reported Past Surgical History: Section Additional Past Surgical History / Comment(s): X2, BREAST BX, LAPAROSCOPY Past Anesthesia/Blood Transfusion Reactions: Previous Problems w/ Anesthesia, Family History of Problems w/ Anesthesia, Motion Sickness, Postoperative Nausea & Vomiting (PONV) Additional Past Anesthesia/Blood Transfusion Reaction / Comment(s): COMBATIVE OR CRYING POST-OP. BROTHER IS ALSO COMBATIVE POST-OP Past Psychological History: No Psychological Hx Reported Smoking Status: Never smoker Past Alcohol Use History: Occasional Past Drug Use History: None Reported - Past Family History Mother Family Medical History: Cancer Additional Family Medical History / Comment(s): THYROID CANCER Brother(s) Family Medical History: Cancer Additional Family Medical History / Comment(s): SKIN CANCER <Gracie Miner - Last Filed: 11/04/24 16:04> General Exam Limitations: no limitations General appearance: alert, in no apparent distress Respiratory exam: Present: normal lung sounds bilaterally. Absent: respiratory distress, wheezes, rales, rhonchi, stridor Cardiovascular Exam: Present: normal rhythm, tachycardia, normal heart sounds Extremities exam: Present: normal inspection, full ROM, normal capillary refill. Absent: tenderness, pedal edema, joint swelling, calf tenderness Neurological exam: Present: alert, oriented X3, CN II-XII intact Skin exam: Present: warm, dry, intact, normal color. Absent: rash <Gracie Miner - Last Filed: 11/04/24 16:04> - General Exam Comments Initial Comments: Visual Physical Exam Vital signs reviewed General: Well-appearing, nontoxic, no acute distress. Head: Normocephalic, atraumatic Eyes: PERRLA, EOMI ENT: Airway patent Chest: Nonlabored breathing Skin: No visual rash, normal skin tone Neuro: Alert and oriented 3 Musculoskeletal: No gross abnormalities (Gracie Miner) Course <Gracie Miner - Last Filed: 11/04/24 16:04> Vital Signs 11/04/24 11/04/24 11/04/24 13:29 13:51 15:58 Temperature 98.8 F 98.6 F Pulse Rate 137 H 122 H 103 H Respiratory 20 18 16 Rate Blood Pressure 181/85 146/78 123/81 O2 Sat by Pulse 98 95 100 Oximetry 11/04/24 16:40 Temperature 97.9 F Pulse Rate Respiratory Rate Blood Pressure O2 Sat by Pulse Oximetry - Reevaluation(s) Reevaluation #1: 11/04/24 16:09 Patient signed out to Sangeetha Mckeon PA-C pending ddimer and disposition. (Gracie Miner) EKG Findings - EKG Comments: EKG Findings:: EKG taken at 13: 48 showing sinus tachycardia. No ST segment elevations or depressions. No T wave inversions. Ventricular rate 122, OH interval 167, QRS duration 80, QT/QTc 313/385. EKG taken at 14: 39 showing a sinus tachycardia with occasional PAC. No ST segment elevations or depressions. No T wave inversions. Ventricular rate 101, OH interval 150, QRS duration 81, QT/QTc 330/392 <Gracie Miner - Last Filed: 11/04/24 16:04> Medical Decision Making - Lab Data Result diagrams: 11/04/24 13:50 11/04/24 13:50 - EKG Data -: EKG Interpreted by [place] - Radiology Data Radiology results: report reviewed, image reviewed <Gracie Miner - Last Filed: 11/04/24 16:04> - Lab Data Result diagrams: 11/04/24 13:50 11/04/24 13:50 <Sangeetha Mckeon - Last Filed: 11/04/24 22:05> - Medical Decision Making Was pt. sent in by a medical professional or institution ([facility] [place], POSTAL SERVICE WINDOW CLERK, urgent care, hospital, or skilled nursing...) When possible be specific @ -No Did you speak to anyone other than the patient for history (EMS, parent, family, police, friend...)? What history was obtained from this source @ -No Did you review nursing and triage notes (agree or disagree)? Why? @ -I reviewed and agree with nursing and triage notes Were old charts reviewed (outside hosp., previous admission, EMS record, old EKG, old radiological studies, urgent care reports/EKG's, skilled nursing records)? Report findings @ -No old charts were reviewed Differential Diagnosis (chest pain, altered mental status, abdominal pain women, abdominal pain men, vaginal bleeding, weakness, fever, dyspnea, syncope, headache, dizziness, GI bleed, back pain, seizure, CVA, palpatations, mental hea lth, musculoskeletal)? @ -Differential Palpitations: Ventricular arrhythmias, atrial arrhythmias, myocardial infarction, anemia, thyrotoxicosis, electrolyte imbalance, hypokalemia, pulmonary embolism, pulmonary disease, drugs, alcohol, anxiety, stress.... This is not meant to be an all-inclusive list. EKG interpreted by me (3pts min.). @ -As above X-rays interpreted by me (1pt min.). @ -CXR interpreted to be negative for focal consolidation, pneumothorax or pleural effusions. CT interpreted by me (1pt min.). @ -None done U/S interpreted by me (1pt. min.). @ -None done What testing was considered but not performed or refused? (CT, X-rays, U/S, labs)? Why? @ -None What meds were considered but not given or refused? Why? @ -None Did you discuss the management of the patient with other professionals (professionals i.e. , PA, POSTAL SERVICE WINDOW CLERK, lab, RT, psych nurse, social worker assistant, wheat inspector, teacher, parking enforcement officer, case folder)? Give summary @ -No Was smoking cessation discussed for >3mins.? @ -No Was critical care preformed (if so, how long)? @ -No Were there social determinants of health that impacted care today? How? (Homelessness, low income, unemployed, alcoholism, drug addiction, tr ansportation, low edu. Level, literacy, decrease access to med. care, [place] [facility], rehab)? @ -No Was there de-escalation of care discussed even if they declined (Discuss DNR or withdrawal of care, Hospice)? DNR status @ -No What co-morbidities impacted this encounter? (DM, HTN, Smoking, COPD, CAD, Cancer, CVA, ARF, Chemo, Hep., AIDS, mental health diagnosis, sleep apnea, morbid obesity)? @ -None Was patient admitted / discharged? Hospital course, mention meds given and route, prescriptions, significant lab abnormalities, going to OR and other pertinent info. @ -59 year old female presenting to the ER for evaluation of palpitations. Upon arrival patient tachycardic 137 bpm. Patient also mildly hypertensive at 110/85. Vitals otherwise stable. Upon my evaluation, patient resting co mfortably on stretcher no signs of acute distress. Laboratory studies obtained remarkable for WBC 10.9 with a left shift. Troponin undetectable, less than 0.012. TSH 1.65. D-dimer pending. CXR negative for acute process. Patient signed out to Sangeetha Mckeon PA-C pending ddimer and dispositon. (Isidra,Gracie) EKG completed at 1348 sinus tachycardia with a ventricular rate of 122, OH interval 167, QRS 80, QT 313, QTc 385. Repeat EKG 1439, sinus tachycardia with occasional PVCs, ventricular rate 101, OH interval 150, QRS 81, QT 334, QTc 392. Patient's hospital course is as follows Discharge. 59-year-old female signed out to me by my colleague pending laboratory results and disposition. Patient's D-dimer is not elevated. At reevaluation patient's heart rate is in the 90s to 100s. Patient states that she is feeling well and not having symptoms of chest pain or heart palpitations. Patient is requesting discharge which I believe is appropriate with close follow-up with her primary care provider and cardiology for further evaluation. Return parameters discussed. Case discussed with Dr. Marshall (Sangeetha Mckeon) - Lab Data Lab Results 11/04/24 11/04/24 11/04/24 Range/Units 13:50 13:50 13:50 WBC 10.98 H (4.50-10.00) 10*3/uL RBC 4.53 (4.10-5.20) 10*6/uL Hgb 13.1 (12.0-15.0) g/dL Hct 39.7 (37.2-46.3) % MCV 87.6 (80.0-97.0) fL MCH 28.9 (27.0-32.0) pg MCHC 33.0 (32.0-37.0) g/dL Plt Count 337 (140-440) 10*3/uL MPV 9.4 L (9.5-12.2) fL Immature Gran % (Auto) 0.4 % Neutrophils % 71.3 % Lymphocytes % 20.3 % Monocytes % 6.6 % Eosinophils % 1.0 % Basophils % 0.4 % Immature Gran # 0.04 (0.00-0.04) 10*3/uL Neutrophils # 7.84 H (1.80-7.70) 10*3/uL Lymphocytes # 2.23 (0.90-5.00) 10*3/uL Monocytes # 0.72 (0.20-1.00) 10*3/uL Eosinophils # 0.11 (0.04-0.35) 10*3/uL Basophils # 0.04 (0.00-0.10) 10*3/uL PT 10.5 (10.0-12.5) sec INR 0.9 (<1.2) APTT 24.5 (22.0-30.0) sec D-Dimer (<0.60) mg/L FEU Sodium 140 (137-145) mmol/L Potassium 4.1 (3.5-5.1) mmol/L Chloride 103 (98-107) mmol/L Carbon Dioxide 20 L (22-30) mmol/L Anion Gap 17 mmol/L BUN 18 H (7-17) mg/dL Creatinine 0.62 (0.52-1.04) mg/dL Est GFR (CKD-EPI)AfAm >90 (>60 ml/min/1.73 sqM) Est GFR (CKD-EPI)NonAf >90 (>60 ml/min/1.73 sqM) Glucose 112 H (74-99) mg/dL Calcium 9.5 (8.4-10.2) mg/dL Magnesium 2.0 (1.6-2.3) mg/dL Total Bilirubin 0.3 (0.2-1.3) mg/dL AST 28 (14-36) U/L ALT 22 (4-34) U/L Alkaline Phosphatase 124 (38-126) U/L Troponin I (0.000-0.034) ng/mL Total Protein 7.8 (6.3-8.2) g/dL Albumin 4.8 (3.5-5.0) g/dL TSH (0.465-4.680) mIU/L 11/04/24 11/04/24 11/04/24 Range/Units 13:50 13:50 13:50 WBC (4.50-10.00) 10*3/uL RBC (4.10-5.20) 10*6/uL Hgb (12.0-15.0) g/dL Hct (37.2-46.3) % MCV (80.0-97.0) fL MCH (27.0-32.0) pg MCHC (32.0-37.0) g/dL Plt Count (140-440) 10*3/uL MPV (9.5-12.2) fL Immature Gran % (Auto) % Neutrophils % % Lymphocytes % % Monocytes % % Eosinophils % % Basophils % % Immature Gran # (0.00-0.04) 10*3/uL Neutrophils # (1.80-7.70) 10*3/uL Lymphocytes # (0.90-5.00) 10*3/uL Monocytes # (0.20-1.00) 10*3/uL Eosinophils # (0.04-0.35) 10*3/uL Basophils # (0.00-0.10) 10*3/uL PT (10.0-12.5) sec INR (<1.2) APTT (22.0-30.0) sec D-Dimer 0.22 (<0.60) mg/L FEU Sodium (137-145) mmol/L Potassium (3.5-5.1) mmol/L Chloride (98-107) mmol/L Carbon Dioxide (22-30) mmol/L Anion Gap mmol/L BUN (7-17) mg/dL Creatinine (0.52-1.04) mg/dL Est GFR (CKD-EPI)AfAm (>60 ml/min/1.73 sqM) Est GFR (CKD-EPI)NonAf (>60 ml/min/1.73 sqM) Glucose (74-99) mg/dL Calcium (8.4-10.2) mg/dL Magnesium (1.6-2.3) mg/dL Total Bilirubin (0.2-1.3) mg/dL AST (14-36) U/L ALT (4-34) U/L Alkaline Phosphatase (38-126) U/L Troponin I <0.012 (0.000-0.034) ng/mL Total Protein (6.3-8.2) g/dL Albumin (3.5-5.0) g/dL TSH 1.650 (0.465-4.680) mIU/L Disposition <Gracie Miner - Last Filed: 11/04/24 16:04> Is patient prescribed a controlled substance at d/c from ED?: No Time of Disposition: 16:27 <Sangeetha Mckeon - Last Filed: 11/04/24 22:05> Clinical Impression: Heart palpitations, Sinus tachycardia Disposition: HOME SELF-CARE Condition: Stable Instructions (If sedation given, give patient instructions): Heart Palpitations (ED) Additional Instructions: Please return to the Emergency Department if symptoms worsen or any other concerns. As discussed, it is importantly follow-up with your primary care provider and digital community manager in the next 1 to 3 days for further evaluation. Referrals: Guy Hartmann DO [Primary Care Provider] - 1-2 days
[2024-11-04 13:57] LABS: Basophils # (A) 0.04 10*3/uL (0.00-0.10); Basophils % (A) 0.4 %; Eosinophils # (A) 0.11 10*3/uL (0.04-0.35); Eosinophils % (A) 1.0 %; HCT 39.7 % (37.2-46.3); HGB 13.1 g/dL (12.0-15.0); Lymphocytes # (A) 2.23 10*3/uL (0.90-5.00); Lymphocytes % (A) 20.3 %; MCH 28.9 pg (27.0-32.0); MCHC 33.0 g/dL (32.0-37.0); MCV 87.6 fL (80.0-97.0); Monocytes # (A) 0.72 10*3/uL (0.20-1.00); Monocytes % (A) 6.6 %; Neutrophils # (A) 7.84 10*3/uL (1.80-7.70); Neutrophils % (A) 71.3 %; Platelet Count 337 10*3/uL (140-440); RBC 4.53 10*6/uL (4.10-5.20); RDW 13.2 % (11.5-14.5); WBC 10.98 10*3/uL (4.50-10.00)
--- NOTE | 2024-11-04 14:14 | XR ---
EXAMINATION TYPE: XR chest 2V DATE OF EXAM: 11/04/2024 2:04 PM COMPARISON: None CLINICAL INDICATION: Female, 59 years old with history of dysrhythmia; [facility] TECHNIQUE: XR chest 2V Frontal and lateral views of the chest. FINDINGS: Lungs/Pleura: There is no evidence of pleural effusion, focal consolidation, or pneumothorax. Pulmonary vascularity: Unremarkable. Heart/mediastinum: Cardiomediastinal silhouette is unremarkable. Musculoskeletal: No acute osseous pathology. IMPRESSION: No acute cardiopulmonary disease/process. [facility], , 11/04/2024 2:11 PM
[2024-11-04 14:21] LABS: INR 0.9 (<1.2); Partial Thromboplastin Time 24.5 sec (22.0-30.0); Prothrombin Time 10.5 sec (10.0-12.5)
[2024-11-04 14:33] LABS: ALT 22 U/L (4-34); AST 28 U/L (14-36); African American GFR (CKD) >90 (>60 ml/min/1.73 sqM); Albumin 4.8 g/dL (3.5-5.0); Alkaline Phosphatase 124 U/L (38-126); Anion Gap 17 mmol/L; Blood Urea Nitrogen 18 mg/dL (7-17); Calcium 9.5 mg/dL (8.4-10.2); Carbon Dioxide 20 mmol/L (22-30); Chloride 103 mmol/L (98-107); Glucose 112 mg/dL (74-99); Magnesium 2.0 mg/dL (1.6-2.3); Non-African American GFR(CKD) >90 (>60 ml/min/1.73 sqM); Potassium 4.1 mmol/L (3.5-5.1); Sodium 140 mmol/L (137-145); Total Protein 7.8 g/dL (6.3-8.2)
[2024-11-04 16:05] VITALS: BP 123/81; PULSE 103; RESP 16
[2024-11-04 16:42] VITALS: TEMP 97.9
== END 2024-11-04 16:42 | disposition home or self-care (01) ==
LOC: EC 13:04
DX: R00.2 Palpitations (principal); R00.0 Tachycardia, unspecified; Z91.040 Latex allergy status
CPT/HCPCS: 36415; 71046; 80053; 83735; 84443; 84484; 85025; 85379; 85610; 85730; 93005; 99285